=== PATIENT | female | born 1960 | race Caucasian/White ===

== ENCOUNTER → 2017-10-11 | Day surgery (SDC) | payer OTHER ==
[~2017-10-11] MED LIST: BUDESONIDE EC3 MG PO; BYSTOLIC20 MG PO; CARAFATE1 G1 PO; CIMZIA400 MG/2 M INJ; CYMBALTA30 MG PO; ESTRADIOL1 MG PO; FENTANYL CITRATE/PF 100MCG/2 ML INJ ONE; LIDOCAINE HCL 2% LOCAL INJ 5 ML SDV VIAL INJ ONE; LUPIN PO; METOCLOPRAMIDE HCL 10 MG/2ML VIAL ONE; MIDAZOLAM HCL 2 MG/2 ML VIAL ONE; ONDANSETRON HCL INJ 2 MG/ML VIAL ONE; PANTOPRAZOLE 40 MG 10ML VIAL ONE; PROPOFOL IV EMULSION 10 MG/ML 50 ML VIAL ONE; Z.0.AMITRIPTYLINE H7 PO; Z.0.ATIVAN1 MG PO; Z.0.IRON325 M1 PO; Z.0.LORTAB 10-5001 E PO; Z.0.NEXIUM40 MG PO; Z.0.PENTASA500 MG PO; Z.0.PHENERGAN25 M1 PO; Z.0.PREDNISONE10 MG PO; Z.0.ZOLOFT100 MG PO; Z.0.ZOLOFT50 MG PO; [UNRECOGNIZED DRUG - OTHER] PO
--- NOTE | 2017-10-11 09:47 | Operative Report ---
DATE OF PROCEDURE: October 11, 2017 REFERRING PHYSICIAN: Dr. Eugenio Sánchez PROCEDURES PERFORMED 1. Esophagogastroduodenoscopy with biopsies. 2. Colonoscopy with polypectomy and biopsies. INDICATIONS FOR EGD: History of heartburn, indigestion, nausea, and vomiting. INDICATIONS FOR COLONOSCOPY: Chronic diarrhea, history of Crohn disease, weight loss, fecal urgency, and incontinence. MEDICATION: Patient was done under MAC. Please see anesthesiologist's note. PROCEDURE: With the patient in the left lateral decubitus position, the flexible fiberoptic Olympus gastroscope was introduced into the esophagus under direct visualization without any difficulty. There was some erosions noted in the distal esophagus. A minute nodule was noted at the GE junction that was biopsied. The scope was then advanced with ease into the stomach traversing a small sliding hiatal hernia. Mucosa overlying the antrum and the body revealed some patchy erythema and moderate edema, and biopsies were obtained and sent to stain for H. pylori. The pylorus was of normal contour and shape. It was intubated with ease. The scope was advanced all the way to the 2nd portion of the duodenum. Biopsies were obtained from proximal 2nd portion to rule out sprue. The scope was then withdrawn slowly. Mucosa overlying the duodenal bulb appeared to be within normal limits. The scope was then retroflexed into the stomach. Mucosa overlying the fundus and the cardia appeared to be within normal limits. The scope was then straightened out. The stomach was decompressed. The scope was subsequently withdrawn. Patient tolerated the procedure well. IMPRESSION 1. Distal erosive esophagitis. 2. Minute nodule, gastroesophageal junction, biopsied. 3. Small sliding hiatal hernia. 4. Gastritis, biopsied. Biopsies sent to stain for Helicobacter pylori. 5. Rule out sprue. PLAN: Follow up histology. Initiate Protonix 40 mg 1 p.o. q.a.m. a.c.. Patient was then turned around. After adequate lubrication of the anal canal, a flexible fiberoptic Olympus colonoscope was inserted into the rectum with ease and advanced all the way to the cecum. Mucosa overlying the cecum grossly appeared to be within normal limits. The ileocecal valve was patulous, and that was intubated with ease. The scope was advanced into the terminal ileum. Biopsies were obtained. The scope was then withdrawn slowly. Mucosa overlying the ascending colon and the transverse colon revealed some patchy areas of erythema and low-grade to moderate edema, and biopsies were obtained. The left colon revealed some moderate inflammatory changes and scattered nodularity, and multiple biopsies were obtained. A minute polyp was noted in the distal sigmoid, and that was hot biopsied. The rectum also revealed some mild inflammatory changes and biopsies were obtained. The scope was then retroflexed into the distal rectum, and the area around the dentate line other than for some inflammatory changes was grossly unremarkable. The scope was then straightened out. The scope was subsequently withdrawn after securing an adequate stool specimen that was sent for the appropriate stool studies. Patient tolerated the procedure well. IMPRESSION 1. Patulous ileocecal valve. 2. Colitis well pronounced in the left colon, multiple biopsies obtained. 3. Sigmoid colon polyp, hot biopsied. 4. Proctitis, biopsied. PLAN: Follow up histology. Follow up stool studies. Will check IBD panel. Initiate Canasa suppositories 1000 mg #30 at bedtime and VSL #3 DS 1 p.o. b.i.d. Continue Bentyl 10 mg 1 p.o. t.i.d. and continue Cimzia. Timing of followup colonoscopy pending pathology report. Job#: [id number] RI cc:EUGENIO SÁNCHEZ MD
[2017-10-11 13:43] LABS: WBC,FECAL (FECAL LACTOFERRIN) POSITIVE (NEGATIVE)
[2017-10-11 13:44] LABS: C DIFFICILE TOXIN A&B AMP PROB **POSITIVE** (NEGATIVE)
== END | disposition home or self-care (01) ==
LOC: OR 06:10
PROVIDERS: ATTEND Internal Medicine Gastroenterology
DX: K29.70 Gastritis, unspecified, without bleeding (principal); K63.5 Polyp of colon; K52.89 Other specified noninfective gastroenteritis and colitis; K22.70 Barrett's esophagus without dysplasia; K22.10 Ulcer of esophagus without bleeding; K62.89 Other specified diseases of anus and rectum; K44.9 Diaphragmatic hernia without obstruction or gangrene; R63.4 Abnormal weight loss; M06.9 Rheumatoid arthritis, unspecified; I10 Essential (primary) hypertension; M54.9 Dorsalgia, unspecified; R00.1 Bradycardia, unspecified; Z88.6 Allergy status to analgesic agent; Z88.2 Allergy status to sulfonamides; F32.9 Major depressive disorder, single episode, unspecified; F41.9 Anxiety disorder, unspecified
CPT/HCPCS: 43239; 45380; 45384; 83630; 83993; 86256; 86671; 87045; 87177; 87328; 87493; 93005; J2001; J2250; J2405; J2765

== ENCOUNTER 2018-02-02 08:04 | Emergency (ER) | payer OTHER ==
[~2018-02-02] VITALS: Ht 157.5 cm; Wt 48.5 kg
[~2018-02-02 08:04] MED LIST changes: -FENTANYL CITRATE/PF 100MCG/2 ML INJ ONE; -LIDOCAINE HCL 2% LOCAL INJ 5 ML SDV VIAL INJ ONE; -METOCLOPRAMIDE HCL 10 MG/2ML VIAL ONE; -MIDAZOLAM HCL 2 MG/2 ML VIAL ONE; -ONDANSETRON HCL INJ 2 MG/ML VIAL ONE; -PANTOPRAZOLE 40 MG 10ML VIAL ONE; -PROPOFOL IV EMULSION 10 MG/ML 50 ML VIAL ONE
[2018-02-02 09:59] VITALS: BP 189/86
[2018-02-02] MEDS ORDERED: DEXAMETHASONE SOD PHOS 10 MG/1 ML VIAL INJ ONE (10:00)
== END 2018-02-02 10:05 | disposition home or self-care (01) ==
LOC: ER 08:04
DX: K08.89 Other specified disorders of teeth and supporting structures (principal); S00.531A Contusion of lip, initial encounter; Z98.818 Other dental procedure status; M06.9 Rheumatoid arthritis, unspecified; K50.90 Crohn's disease, unspecified, without complications
CPT/HCPCS: 99282; J1100

== ENCOUNTER 2019-06-17 12:46 | Emergency (ER) | payer OTHER ==
[~2019-06-17] VITALS: Ht 157.5 cm; Wt 48.5 kg
[2019-06-17] MEDS ORDERED: SODIUM CHLORIDE 0.9% 1000ML 1,000 ML IV STA (13:31)
[2019-06-17] MEDS ORDERED: ACETAMIN/BUTALBITAL/CAFFEINE TAB PO ONE (13:45)
[2019-06-17] MEDS ORDERED: HYDRALAZINE HCL 20 MG/ML VIAL IV ONE (14:00)
[2019-06-17 14:02] LABS: BASOPHILS # (AUTO) 0.1 (0.0-0.1); BASOPHILS % 0.6 % (0.0-1.0); EOSINOPHILS # (AUTO) 0.1 (0.0-0.4); EOSINOPHILS % 0.7 % (0.0-6.0); HEMATOCRIT 39.3 % (34.2-44.1); HEMOGLOBIN 13.8 g/dL (12.0-16.0); LYMPHOCYTES # (AUTO) 2.4 (1.0-3.2); LYMPHOCYTES % 25.4 % (18.0-39.1); MEAN CORPUSCULAR HEMOGLOBIN 34.8 pg (28-32); MEAN CORPUSCULAR HGB CONC 35.1 g/dL (31-35); MONOCYTES # (AUTO) 0.7 (0.2-0.8); MONOCYTES % 7.2 % (4.4-11.3); NEUTROPHILS # (AUTO) 6.2 (2.1-6.9); NEUTROPHILS % 65.7 % (38.7-80.0); PLATELET COUNT 437 x10e3/uL (140-360); RED BLOOD COUNT 3.97 x10e6/uL (3.6-5.1); RED CELL DISTRIBUTION WIDTH 12.2 % (11.7-14.4)
[2019-06-17 14:12] LABS: INR 0.81; PROTHROMBIN TIME 11.6 seconds (11.9-14.5)
[2019-06-17 14:13] LABS: PARTIAL THROMBOPLASTIN TIME 31.1 seconds (23.8-35.5)
--- NOTE | 2019-06-17 14:16 | Diagnostic Imaging Report ---
EXAMINATION: CHEST SINGLE (PORTABLE) INDICATION: Hypertension COMPARISON: None FINDINGS: LINES/TUBES:None LUNGS:The lungs are well-inflated. No focal consolidation or pulmonary edema. PLEURA:No pleural effusion or pneumothorax. MEDIASTINUM:The cardiomediastinal silhouette appears normal in size and shape. BONES/SOFT TISSUES:No acute osseous injury. ABDOMEN:No free air under the diaphragm. IMPRESSION: No focal pneumonia or pulmonary edema. Signed by: Deuce Benz MD on 06/17/2019 2:13 PM
[2019-06-17 14:19] LABS: BILIRUBIN,URINE NEGATIVE (NEGATIVE); CLARITY,URINE SL CLOUDY (CLEAR); COLOR,URINE YELLOW (YELLOW); KETONES,URINE NEGATIVE (NEGATIVE); LEUKOCYTE ESTERASE ,URINE NEGATIVE (NEGATIVE); NITRITE,URINE NEGATIVE (NEGATIVE); PROTEIN,URINE DIPSTICK NEGATIVE (NEGATIVE); URINE UROBILINOGEN 0.2 mg/dL (0.2 - 1)
--- NOTE | 2019-06-17 14:20 | Diagnostic Imaging Report ---
Exam: Head CT without contrast History: Headache Comparison studies: Head CT 07/18/2016 Technique: Axial images were obtained from the skull base to the vertex. Coronal and sagittal images reconstructed from the axial data. Dose modulation, iterative reconstruction, and/or weight based adjustment of the mA/kV was utilized to reduce the radiation dose to as low as reasonably achievable. Radiation dose: Total DLP: 832 mGy*cm. Estimated effective dose: DLP x 0.015 Intravenous contrast: None Findings: Scalp: No abnormalities. Bones: No fractures, blastic or lytic lesions. Brain sulci: Appropriate for age. Ventricles: Normal in size and configuration. No hydrocephalus. Extra-axial spaces: No masses, no fluid collection. Parenchyma: No mass, acute hemorrhage or acute or chronic cortical insults. A few scattered hypodensities in the supratentorial white matter, slightly greater in the right frontal and parietal white matter are nonspecific but may be chronic microvascular ischemic changes. Sellar/suprasellar region: No abnormalities. Craniocervical junction: Patent foramen magnum. No Chiari one malformation. Incidental findings: Small layering fluid level in the left sphenoid sinus, similar to prior exam. New small fluid level in the right sphenoid sinus. IMPRESSION: 1. No acute intracranial abnormalities. 2. Nonspecific supratentorial white matter changes (right greater than left) which are nonspecific but may be chronic microvascular ischemic changes are unchanged. 3. Nonspecific bilateral sphenoid sinusitis. Signed by: Dr. Edgardo Oneill M.D. on 06/17/2019 2:16 PM
[2019-06-17 14:21] LABS: ALANINE AMINOTRANSFERASE 24 IU/L (0-55); ALBUMIN 4.3 g/dL (3.5-5.0); ALBUMIN/GLOBULIN RATIO 1.3 (0.8-2.0); ALKALINE PHOSPHATASE 52 IU/L (40-150); ANION GAP 17.3 mmol/L (8-16); BLOOD UREA NITROGEN 7 mg/dL (7-26); BUN/CREATININE RATIO 11 (6-25); CALCIUM 10.5 mg/dL (8.4-10.2); CARBON DIOXIDE 25 mmol/L (22-29); CHLORIDE 92 mmol/L (98-107); CREATINE KINASE 77 IU/L (29-168); CREATININE, SERUM 0.66 mg/dL (0.57-1.11); EST GLOMERULAR FILTRATION RATE > 60 ML/MIN (60-); GLUCOSE 100 mg/dL (74-118); POTASSIUM 3.3 mmol/L (3.5-5.1); SODIUM 131 mmol/L (136-145)
[2019-06-17 14:34] LABS: BACTERIA,URINE RARE /HPF; EPITHELIAL CELLS,URINE FEW /LPF; WBC,URINE (MAN) 0-5 /HPF (0-5)
[2019-06-17] MEDS ORDERED: ONDANSETRON HCL INJ 2MG/ML 2ML 2 MG/ML VIAL IV ONE (16:16)
[2019-06-17] MEDS ORDERED: MORPHINE SULFATE INJ 4 MG/ML INJ 1ML IV PRN (16:30)
[2019-06-17] MEDS ORDERED: MORPHINE SULFATE 2 MG/ML SYR 1ML IV ONE (16:30)
[2019-06-17] MEDS ORDERED: MORPHINE SULFATE 2 MG/ML SYR 1ML IV PRN (16:30)
--- NOTE | 2019-06-17 16:55 | NUR ---
attempt to dc pt; pt states "nobody cares, you people do nothing." pt states, "you dont know what the hell your doing." pt states she didnt get the medicine it takes to take away her headache. pt states she cant take antibiotics because she has chrones. pt displays drug seeking behavior.
== END 2019-06-17 17:00 | disposition home or self-care (01) ==
LOC: ER 12:46
DX: R51 Headache (principal); I10 Essential (primary) hypertension; J01.30 Acute sphenoidal sinusitis, unspecified; F41.9 Anxiety disorder, unspecified; K21.9 Gastro-esophageal reflux disease without esophagitis; M06.9 Rheumatoid arthritis, unspecified; K50.90 Crohn's disease, unspecified, without complications; Z86.73 Personal history of transient ischemic attack (TIA), and cerebral infarction without residual deficits
CPT/HCPCS: 36415; 70450; 71045; 80053; 81001; 82550; 82553; 83880; 84484; 85025; 85610; 85730; 87086; 93005; 99284; J0360; J2270; J2405; J7030